=== PATIENT | female | born 1985 | race Hispanic/Latino ===

== ENCOUNTER 2017-12-02 20:06 | Emergency (ER) | payer OTHER ==
[2017-12-02] MEDS ORDERED: TETRACAINE HCL 0.5% 2ML OPTH ONE (21:14)
[2017-12-02] MEDS ORDERED: FLUORESCEIN SODIUM 0.6 MG/WRAP ONE (21:14)
--- NOTE | 2017-12-02 21:43 | ER ---
Nurse's Notes [facility] Name: Millie Valentine Age: 32 yrs Sex: Female : 1985 Arrival Date: 12/02/2017 Time: 20:09 Bed 23 Private MD: Diagnosis: Conjunctivitis Presentation: 12/02 20:31 Presenting complaint: Patient states: Swelling to the right eye for the past 4 days. aj1 Today she is having a burning sensation in that eye and it hurts to close it. Denies fever. Reports yellow drainage from the left eye. Denies injury to the right eye. Transition of care: patient was not received from another setting of care. Mechanism of Injury: No Mechanism of Injury. The patient denies any loss of vision. Onset of symptoms was November 29, 2017. Risk Assessment: Do you want to hurt yourself or someone else? Patient reports no desire to harm self or others. Initial Sepsis Screen: Does the patient meet any 2 criteria? No. Patient's initial sepsis screen is negative. Does the patient have a suspected source of infection? No. Patient's initial sepsis screen is negative. Care prior to arrival: None. 20:31 Method Of Arrival: Ambulatory aj1 20:31 Acuity: ORLY 4 aj1 Triage Assessment: 20:33 General: Appears in no apparent distress. uncomfortable, Behavior is calm, cooperative, aj1 appropriate for age. Pain: Complains of pain in right eye Pain currently is 6 out of 10 on a pain scale. EENT: swelling to right upper and lower eye lid. Reports yellow drainage from right eye. Neuro: Level of Consciousness is awake, alert, obeys commands. Cardiovascular: Patient's skin is warm and dry. Respiratory: Airway is patent Respiratory effort is even, unlabored, Respiratory pattern is regular, symmetrical. 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 - Social history:: Smoking status: Patient/guardian denies using tobacco. - Ebola Screening: : Patient denies travel to an Ebola-affected area in the 21 days before illness onset. Screenin:45 Abuse screen: Denies threats or abuse. Denies injuries from another. Nutritional kr2 screening: No deficits noted. Tuberculosis screening: No symptoms or risk factors identified. Fall Risk None identified. Assessment: 21:00 EENT: Eyes are tearing on right eye with exudate noted from right upper eyelid kr2 Sclera/Cornea are reddened in inner aspect of conjuctiva of right eye. 21:00 General: Appears in no apparent distress. comfortable, well groomed, well developed, kr2 well nourished, Behavior is calm, cooperative, appropriate for age. Pain: Denies pain. Neuro: Level of Consciousness is awake, alert, obeys commands, Oriented to person, place, time, situation. Cardiovascular: Capillary refill < 3 seconds in bilateral fingers Patient's skin is warm and dry. Respiratory: Airway is patent Respiratory effort is even, unlabored, Respiratory pattern is regular, symmetrical. Derm: Skin is intact, is healthy with good turgor, Skin is pink, warm \T\ dry. Musculoskeletal: Circulation, motion, and sensation intact. 21:46 Reassessment: Patient appears in no apparent distress at this time. Patient and/or kr2 family updated on plan of care and expected duration. Pain level reassessed. Patient is alert, oriented x 3, equal unlabored respirations, skin warm/dry/pink. Patient denies pain at this time. Vital Signs: 20:33 BP 126 / 80; Pulse 64; Resp 16; Temp 97.5; Pulse Ox 98% on R/A; Weight 88 kg (R); aj1 Height 5 ft. 6 in. (167.64 cm) (R); Pain 6/10; 20:33 Body Mass Index 31.31 (88.00 kg, 167.64 cm) aj1 Visual Acuity: 21:42 Left Eye Visual acuity 20/15, ; Right Eye Visual acuity 20/20, ; Both Eyes Visual kr2 acuity 20/15; With Lenses; ED Course: 20:09 Patient arrived in ED. do 20:32 Triage completed. aj1 20:33 Arm band placed on Patient placed in waiting room, Patient notified of wait time. aj1 20:45 Delmy Montoya RN is Primary Nurse. kr2 20:45 Patient has correct armband on for positive identification. Bed in low position. Call kr2 light in reach. Side rails up X 1. Pulse ox on. NIBP on. Door closed. Warm blanket given. Head of bed elevated. 20:53 Shon Trejo MD is Attending Physician. tw4 21:46 No provider procedures requiring assistance completed. Patient did not have IV access kr2 during this emergency room visit. Administered Medications: 21:30 Drug: Fluorescein Strip 1 strip {Note: Given by Dr. Trejo.} Route: Ophthalmic; Site: kr2 right eye; 21:49 Follow up: Response: No adverse reaction kr2 21:30 Drug: Tetracaine Drops 0.5 % 1 drops {Note: given by Dr. Trejo.} Route: Ophthalmic; kr2 Site: right eye; 21:49 Follow up: Response: No adverse reaction kr2 Outcome: 21:43 Discharge ordered by . tw4 21:53 Discharged to home ambulatory, with family. kr2 21:53 Condition: good 21:53 Discharge instructions given to patient, Instructed on discharge instructions, follow up and referral plans. medication usage, Demonstrated understanding of instructions, follow-up care, medications, Prescriptions given X 1. 21:53 Patient left the ED. kr2 Signatures: Alexandra Major RN RN aj1 Nataliia Curry Karey RN RN kr2 Shon Trejo MD MD tw4 Corrections: (The following items were deleted from the chart) 21:49 21:30 Fluorescein Strip 1 strip Ophthalmic in right eye kr2 kr2
--- NOTE | 2017-12-02 21:44 | EDPHYS ---
Physician Documentation [facility] Name: Millie Valentine Age: 32 yrs Sex: Female : 1985 Arrival Date: 12/02/2017 Time: 20:09 Bed 23 Private MD: ED Physician Shon Trejo HPI: 12/02 21:38 This 32 yrs old Female presents to ER via Ambulatory with complaints of Eye tw4 Swelling, Eye Pain. 21:38 The patient is experiencing pain, redness, The patient sustained to the right eye. tw4 Duration: the symptoms are continuous. Aggravated by nothing. Alleviated by nothing. Associated signs and symptoms: Pertinent positives:. Patient wears glasses. Severity of symptoms: 4 day(s) ago, At their worst the symptoms were. The patient has not experienced similar symptoms in the past. 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 - Social history:: Smoking status: Patient/guardian denies using tobacco. - Ebola Screening: : Patient denies travel to an Ebola-affected area in the 21 days before illness onset. ROS: 21:38 Constitutional: Negative for fever, chills, and weight loss. tw4 21:38 ENT: Negative for injury, pain, and discharge, Cardiovascular: Negative for chest pain, palpitations, and edema, Respiratory: Negative for shortness of breath, cough, wheezing, and pleuritic chest pain, Abdomen/GI: Negative for abdominal pain, nausea, vomiting, diarrhea, and constipation, Back: Negative for injury and pain, MS/Extremity: Negative for injury and deformity. 21:38 Eyes: Positive for foreign body sensation, pain, redness, tearing, Negative for blurry vision, discharge, matting, photophobia, sunken appearance, visual disturbance. Exam: 21:38 Visual Acuity: I have reviewed the nursing documentation. tw4 21:38 Constitutional: This is a well developed, well nourished patient who is awake, alert, and in no acute distress. Head/Face: Normocephalic, atraumatic. Chest/axilla: Normal chest wall appearance and motion. Nontender with no deformity. No lesions are appreciated. Cardiovascular: Regular rate and rhythm with a normal S1 and S2. No gallops, murmurs, or rubs. Normal PMI, no JVD. No pulse deficits. Respiratory: Lungs have equal breath sounds bilaterally, clear to auscultation and percussion. No rales, rhonchi or wheezes noted. No increased work of breathing, no retractions or nasal flaring. 21:38 Eyes: Periorbital structures: swelling, that is mild, on the right upper eyelid, Pupils: equal, round, and reactive to light and accomodation, Extraocular movements: no acute changes, Conjunctiva: injected, in the right eye, Corneas: no acute changes, abrasion, is not appreciated, a fluorescein strip employed to appreciate the findings, Sclera: no appreciated abnormality, Anterior chamber: normal, Lids and lashes: edema, of the right eye. Vital Signs: 20:33 BP 126 / 80; Pulse 64; Resp 16; Temp 97.5; Pulse Ox 98% on R/A; Weight 88 kg (R); aj1 Height 5 ft. 6 in. (167.64 cm) (R); Pain 6/10; 20:33 Body Mass Index 31.31 (88.00 kg, 167.64 cm) aj1 Visual Acuity: 21:42 Left Eye Visual acuity 20/15, ; Right Eye Visual acuity 20/20, ; Both Eyes Visual kr2 acuity 20/15; With Lenses; MDM: 20:53 Patient medically screened. tw4 21:38 Differential diagnosis: Corneal abrasion of right eye. Corneal ulcer of right eye. tw4 Acute iritis of right eye. Acute glaucoma in right eye. Allergic conjunctivitis in Infectious conjunctivitis in. Counseling: I had a detailed discussion with the patient and/or guardian regarding: the historical points, exam findings, and any diagnostic results supporting the discharge/admit diagnosis. 23:19 Data reviewed: vital signs, nurses notes. tw4 Administered Medications: 21:30 Drug: Fluorescein Strip 1 strip {Note: Given by Dr. Trejo.} Route: Ophthalmic; Site: kr2 right eye; 21:49 Follow up: Response: No adverse reaction kr2 21:30 Drug: Tetracaine Drops 0.5 % 1 drops {Note: given by Dr. Trejo.} Route: Ophthalmic; kr2 Site: right eye; 21:49 Follow up: Response: No adverse reaction kr2 Disposition: 12/02/17 21:43 Discharged to Home. Impression: Conjunctivitis. - Condition is Stable. - Discharge Instructions: Bacterial Conjunctivitis. - Prescriptions for Gentamicin 0.3 % Ophthalmic Drops - instill 1 drop by OPHTHALMIC route every 4 hours for 7 days; 1 bottle. - Medication Reconciliation Form, Thank You Letter, Antibiotic Education, Prescription Opioid Use form. - Follow up: Private Physician; When: Upon discharge from the Emergency Department; Reason: Further diagnostic work-up, Recheck today's complaints, Re-evaluation by your physician. - Problem is new. - Symptoms are unchanged. Signatures: Alexandra Major RN RN aj1 Delmy Montoya RN RN kr2 Shon Trejo MD MD tw4 Corrections: (The following items were deleted from the chart) 21:43 21:43 12/02/2017 21:43 Discharged to Home. Impression: Conjunctivitis. Condition is tw4 Stable. Forms are Medication Reconciliation Form, Thank You Letter, Antibiotic Education, Prescription Opioid Use. Follow up: Private Physician; When: Upon discharge from the Emergency Department; Reason: Further diagnostic work-up, Recheck today's complaints, Re-evaluation by your physician. tw4 21:53 21:43 12/02/2017 21:43 Discharged to Home. Impression: Conjunctivitis. Condition is kr2 Stable. Forms are Medication Reconciliation Form, Thank You Letter, Antibiotic Education, Prescription Opioid Use. Follow up: Private Physician; When: Upon discharge from the Emergency Department; Reason: Further diagnostic work-up, Recheck today's complaints, Re-evaluation by your physician. Problem is new. Symptoms are unchanged. tw4
== END 2017-12-02 21:53 | disposition home or self-care (01) ==
LOC: ER 20:06
DX: H10.9 Unspecified conjunctivitis (principal)
CPT/HCPCS: 99283